=== PATIENT | male | born 1995 | race Caucasian/White ===

== ENCOUNTER 2020-05-04 13:33 | Emergency (ER) | payer MEDICARE ==
[~2020-05-04] VITALS: Ht 182.9 cm; Wt 108.9 kg
== END 2020-05-04 17:08 | disposition home or self-care (01) ==
LOC: ED 13:33
DX: N13.2 Hydronephrosis with renal and ureteral calculous obstruction (principal)
CPT/HCPCS: 74176; 80048; 81001; 85025; 96374; 96375; 96376; 99284-25; J1885; J2270; J7030